=== PATIENT | female | born 1935 | race Caucasian/White ===

== ENCOUNTER 2017-08-25 08:47 | Outpatient (CLI) | payer MEDICARE, OTHER ==
[2017-08-25 14:41] LABS: ALT (SGPT) 13 U/L (8-55); AST (SGOT) 23 U/L (5-34); Albumin 3.8 g/dL (3.4-4.8); Alkaline Phosphatase 103 U/L (40-150); Anion Gap 18 mmol/L (10-20); BUN (Urea Nitrogen) 20 mg/dL (9.8-20.1); Bilirubin, Direct 0.1 mg/dL (0.1-0.3); Bilirubin, Total 0.3 mg/dL (0.2-1.2); Calc. Creatinine Clearance 0 mL/min (70-130); Calcium 8.8 mg/dL (7.8-10.44); Carbon Dioxide 24 mmol/L (23-31); Cardiac Risk 3.1 (Less than 4.5); Chloride 105 mmol/L (98-107); Cholesterol 123 mg/dl (< 200 Desired); Estimated GFR-MDRD 79; Glucose 100 mg/dL (83-110); HDL Cholesterol 40 mg/dL (>60 Neg Risk); LDL Cholesterol, Calculated 70 mg/dL; Potassium 3.8 mmol/L (3.5-5.1); Sodium 143 mmol/L (136-145); Triglycerides 64 mg/dL (Less than 150)
[2017-08-25 20:25] LABS: Hemoglobin A1c 6.6 % (4.0-6.0)
== END 2017-08-25 08:48 | disposition home or self-care (01) ==
LOC: MADLAB 08:47
PROVIDERS: ATTEND Family Medicine
DX: R42 Dizziness and giddiness (principal); E11.9 Type 2 diabetes mellitus without complications; E78.4 Other hyperlipidemia
CPT/HCPCS: 36415; 80048; 80061; 80076; 83036

== ENCOUNTER 2018-02-15 21:38 | Emergency (ER) | payer MEDICARE, OTHER ==
--- NOTE | 2018-02-15 22:50 | CT ---
CT BRAIN WITHOUT CONTRAST: 02/15/18 HISTORY: Fall, headache. FINDINGS: There are changes of cortical atrophy and chronic small vessel ischemic disease. the ventricular size is appropriate and the basilar cisterns are patent. No evidence of acute infarct, hemorrhage, midlin e shift, abnormal extra-axial fluid collections are seen. The bony calvarium is intact. The visualize d paranasal sinuses and mastoid air cells are well aerated. IMPRESSION: No CT evidence of acute intracranial process. POS: [facility]
--- NOTE | 2018-02-15 22:56 | CT ---
CT CERVICAL SPINE WITH CORONAL AND SAGITTAL REFORMATIONS 02/15/18 HISTORY: Injury, neck pain. FINDINGS/IMPRESSION: Degenerative changes are present predominantly in the lower cervical spine. There is loss of cervical lordosis. No fracture or subluxation seen. No specific malalignment is noted. Incidental note is made of a 1.5 cm partially calcified exophytic mass in the left oropharynx. This should be evaluated with direct visualization/endoscopy on a nonemergent basis. POS: [facility]
== END 2018-02-15 23:21 | disposition home or self-care (01) ==
LOC: MADERS 21:38
DX: S00.03XA Contusion of scalp, initial encounter (principal); E11.9 Type 2 diabetes mellitus without complications; E78.5 Hyperlipidemia, unspecified; I10 Essential (primary) hypertension; G30.9 Alzheimer's disease, unspecified; F02.80 Dementia in other diseases classified elsewhere, unspecified severity, without behavioral disturbance, psychotic disturbance, mood disturbance, and anxiety; Z79.84 Long term (current) use of oral hypoglycemic drugs; Z79.899 Other long term (current) drug therapy; I25.10 Atherosclerotic heart disease of native coronary artery without angina pectoris; G31.9 Degenerative disease of nervous system, unspecified; W06.XXXA Fall from bed, initial encounter
CPT/HCPCS: 70450; 72125

== ENCOUNTER 2018-02-27 13:04 | Emergency (ER) | payer MEDICARE, OTHER ==
--- NOTE | 2018-02-27 15:24 | RAD ---
LEFT WRIST FOUR VIEWS: 02/27/18 HISTORY: Wrist injury. FINDINGS: Scaphoid waist and sacral alae are intact. Osseous structures are demineralized. Mild osteoarthritic changes. No acute fracture, dislocation or aggressive osseous erosions. IMPRESSION: No acute osseous abnormalities are demonstrated. Osteoporosis. POS: [facility]
== END 2018-02-27 14:07 | disposition home or self-care (01) ==
LOC: MADERS 13:04
DX: S63.502A Unspecified sprain of left wrist, initial encounter (principal); E78.5 Hyperlipidemia, unspecified; I10 Essential (primary) hypertension; G30.9 Alzheimer's disease, unspecified; F02.80 Dementia in other diseases classified elsewhere, unspecified severity, without behavioral disturbance, psychotic disturbance, mood disturbance, and anxiety; Z79.899 Other long term (current) drug therapy; W17.89XA Other fall from one level to another, initial encounter

== ENCOUNTER 2018-04-27 07:39 | Outpatient (CLI) | payer MEDICARE, OTHER ==
[2018-04-27 08:09] LABS: Bilirubin Negative (Negative); Blood, Urine Negative (Negative); Clarity Clear (Clear); Glucose, Urine (Dipstick) >=1000 mg/dL (Negative); Leukocyte Negative (Negative); Nitrite Negative (Negative); Protein, Urine (Dipstick) Negative (Neg-Trace); Urobilinogen 0.2 mg/dL (0.2-1.0)
== END 2018-04-27 07:40 | disposition home or self-care (01) ==
LOC: MADLAB 07:39
PROVIDERS: ATTEND Emergency Medicine
DX: N39.0 Urinary tract infection, site not specified (principal)
CPT/HCPCS: 81003; 87077; 87086